=== PATIENT | male | born 1950 | race African-American/Black ===

== ENCOUNTER 2022-03-02 00:18 | Emergency (ER) | payer MEDICARE, MEDICAID | END 2022-03-02 01:09 | disposition left against medical advice (07) | LOC: CSHERS 00:18 | DX: Z53.21 Procedure and treatment not carried out due to patient leaving prior to being seen by health care provider (principal) | CPT/HCPCS: 36416 ==

== ENCOUNTER 2022-03-10 17:14 | Emergency (ER) | payer MEDICARE, OTHER ==
[2022-03-10] MEDS ORDERED: Buprenorphine 8mg/Naloxone 2mg per 1 FILM SL SCH (20:00)
== END 2022-03-10 23:52 | disposition home or self-care (01) ==
LOC: CSHERS 17:14
DX: F11.23 Opioid dependence with withdrawal (principal); I10 Essential (primary) hypertension; Z87.891 Personal history of nicotine dependence; Z86.73 Personal history of transient ischemic attack (TIA), and cerebral infarction without residual deficits
CPT/HCPCS: 93005

== ENCOUNTER 2022-05-08 14:09 | Outpatient (CLI) | payer OTHER | END 2022-05-08 14:10 | disposition home or self-care (01) | LOC: CSHULT 14:09 | PROVIDERS: ATTEND Internal Medicine | DX: R60.0 Localized edema (principal) | CPT/HCPCS: 93970 ==

== ENCOUNTER 2022-05-26 16:36 | Outpatient (CLI) | payer OTHER | END 2022-05-26 16:37 | disposition home or self-care (01) | LOC: CSHRAD 16:36 | PROVIDERS: ATTEND Internal Medicine | DX: M54.2 Cervicalgia (principal); M25.571 Pain in right ankle and joints of right foot; M25.551 Pain in right hip; M47.812 Spondylosis without myelopathy or radiculopathy, cervical region; M16.11 Unilateral primary osteoarthritis, right hip | CPT/HCPCS: 72040 ==